=== PATIENT | female | born 1995 | race Asian ===

== ENCOUNTER 2016-07-19 17:39 | Emergency (ER) | payer BC ==
[~2016-07-19] VITALS: Ht 160 cm; Wt 49.8 kg
[2016-07-19 18:00] VITALS: TEMP 36.4; Ht 160 cm; Wt 49.8 kg
[2016-07-19] MEDS ORDERED: SODIUM CHLORIDE 0.9% 1000ML 1,000 ML IV STA (20:19)
[2016-07-19] MEDS ORDERED: DiphenhydrAMINE HCL 50 MG/ML VIAL IV STA (20:19)
[2016-07-19] MEDS ORDERED: PROCHLORPERAZINE 5 MG/ML 2 ML VIAL IV STA (20:19)
[2016-07-19] MEDS ORDERED: KETOROLAC TROMETHAMINE 30 MG/ML VIAL IV STA (20:19)
--- NOTE | 2016-07-19 20:22 | EMERGENCY ROOM VISIT NOTE ---
History Report prepared by Logan: Janet William Under the Supervision of: Dr. Owen Ritchie M.D. First contact with patient: 20:09 Chief Complaint: HEADACHE Stated Complaint: HEADACHE,NAUSEA History of Present Illness The patient is a 21 year old female who presents to the Emergency Room with complaints of a persistent headache that began this morning. She currently rates her discomfort as an 8/10 in severity. The patient states that her headache started suddenly this morning and states that she started experiencing nausea and vomiting. She denies any abdominal pain. The patient describes her headache as a throbbing pain and states that she has had one previous headache like this in the past. She denies any neck pain. The patient states that she is currently on antibiotics for a recent cough. She states that she has taken Advil for her discomfort, but states that she has vomited everything back up. The patient denies ever having any previous CT or MRI imaging of her head. She denies any chance of noting that her last normal menstrual cycle was three weeks ago. The patient denies any active medical problems. Source of History: patient Onset: this morning Position: head Symptom Intensity: 8/10 Quality: other (throbbing) Timing: other (persistent) Associated Symptoms: + cough, + nausea, + vomiting Review of Systems See HPI for pertinent positives & negatives. A total of 10 systems reviewed and were otherwise negative. Past Medical & Surgical Medical Problems: (1) No active medical problems Family History No pertinent family history stated. Social History Smoking Status: Never Smoker Marital Status: single Occupation Status: [employer] student Current/Historical Medications Scheduled Clarithromycin (Biaxin), 1 TAB PO BID Ondasetron Odt (Zofran Odt), 4 MG SL Q6H Scheduled PRN [Cheratussin Ac], 5 ML Q6 PRN for Cough Allergies Coded Allergies: No Known Allergies (Unverified , 07/19/16) Physical Exam Vital Signs Date Time Temp Pulse Resp B/P Pulse Ox O2 Delivery O2 Flow Rate FiO2 07/19/16 21:51 77 18 108/67 100 07/19/16 20:50 81 18 105/55 99 Room Air 07/19/16 18:00 36.4 73 20 114/76 100 Physical Exam GENERAL: Patient is a healthy-appearing well-nourished HEAD: Normocephalic atraumatic EYES: Ocular movements intact pupils equal and react to light OROPHARYNX mucous membranes are moist no exudates present no erythema or edema present NECK: No evidence of meningitis or encephalitis on exam. Supple no nuchal rigidity CHEST: Good equal expansion LUNGS: Clear and equal to auscultation CARDIAC: Normal S1 and S2 ABDOMEN: Soft nontender no guarding BACK: No CVA tenderness EXTREMITIES: No pain upon palpation normal muscle strength in all groups no clubbing cyanosis or edema NEURO: Patient is following commands is answering questions appropriately. Alert and oriented x3 Cranial Nerves 2-12 grossly intact Medical Decision & Procedures ER Provider Diagnostic Interpretation: CT results as stated below per my review and radiologist interpretation: HEAD CT NONCONTRAST CT DOSE: 537.48 mGy.cm HISTORY: Headache Pt c/o severe headache TECHNIQUE: Multiaxial CT images of the head were performed without the use of intravenous contrast. Comparison: None. Findings: The paranasal sinuses and mastoid air cells are clear. The calvarium and skull base are intact. The ventricles and sulci are within normal limits. There is no mass, hematoma, midline shift, or acute infarct. Impression: No acute intracranial abnormality. Electronically signed by: Alfredo Paniagua M.D. 07/19/2016 9:13 PM Dictated Date/Time: 07/19/2016 9:12 PM Laboratory Results 07/19/16 20:36 Red Blood Count 4.46, Mean Corpuscular Volume 87.9, Mean Corpuscular Hemoglobin 30.5, Mean Corpuscular Hemoglobin Concent 34.7, Mean Platelet Volume 9.6, Neutrophils (%) (Auto) 85.6, Lymphocytes (%) (Auto) 9.5, Monocytes (%) (Auto) 4.1, Eosinophils (%) (Auto) 0.2, Basophils (%) (Auto) 0.2, Neutrophils # (Auto) 7.93, Lymphocytes # (Auto) 0.88, Monocytes # (Auto) 0.38, Eosinophils # (Auto) 0.02, Basophils # (Auto) 0.02 07/19/16 20:36 Test 07/19/16 20:36 White Blood Count 9.27 K/uL (4.8-10.8) Red Blood Count 4.46 M/uL (4.2-5.4) Hemoglobin 13.6 g/dL (12.0-16.0) Hematocrit 39.2 % (37-47) Mean Corpuscular Volume 87.9 fL (80-100) Mean Corpuscular Hemoglobin 30.5 pg (25-34) Mean Corpuscular Hemoglobin Concent 34.7 g/dl (32-36) Platelet Count 258 K/uL (130-400) Mean Platelet Volume 9.6 fL (7.4-10.4) Neutrophils (%) (Auto) 85.6 % Lymphocytes (%) (Auto) 9.5 % Monocytes (%) (Auto) 4.1 % Eosinophils (%) (Auto) 0.2 % Basophils (%) (Auto) 0.2 % Neutrophils # (Auto) 7.93 K/uL (1.4-6.5) Lymphocytes # (Auto) 0.88 K/uL (1.2-3.4) Monocytes # (Auto) 0.38 K/uL (0.11-0.59) Eosinophils # (Auto) 0.02 K/uL (0-0.5) Basophils # (Auto) 0.02 K/uL (0-0.2) RDW Standard Deviation 40.5 fL (36.4-46.3) RDW Coefficient of Variation 12.6 % (11.5-14.5) Immature Granulocyte % (Auto) 0.4 % Immature Granulocyte # (Auto) 0.04 K/uL (0.00-0.02) Anion Gap 13.0 mmol/L (3-11) Est Creatinine Clear Calc Drug Dose 115.6 ml/min Estimated GFR () 150.0 Estimated GFR (Non- 129.4 BUN/Creatinine Ratio 19.5 (10-20) Calcium Level 9.0 mg/dl (8.5-10.1) Total Bilirubin 1.0 mg/dl (0.2-1) Direct Bilirubin 0.2 mg/dl (0-0.2) Aspartate Amino Transf (AST/SGOT) 15 U/L (15-37) Alanine Aminotransferase (ALT/SGPT) 17 U/L (12-78) Alkaline Phosphatase 36 U/L (45-117) Total Protein 8.0 gm/dl (6.4-8.2) Albumin 4.3 gm/dl (3.4-5.0) Lipase 95 U/L (73-393) Human Chorionic Gonadotropin, Qual NEG (NEG) Labs reviewed by ED physician. Medications Administered Medications (Trade) Dose Ordered Sig/Jun Route Start Time Stop Time Status Last Admin Dose Admin Ketorolac Tromethamine (Toradol Inj) 30 mg NOW STAT IV 07/19/16 20:19 07/19/16 20:21 DC 07/19/16 20:37 30 MG Prochlorperazine Edisylate (Compazine Inj) 5 mg NOW STAT IV 07/19/16 20:19 07/19/16 20:21 DC 07/19/16 20:37 5 MG Diphenhydramine HCl 50 mg 50 mg NOW STAT IV 07/19/16 20:19 07/19/16 20:21 DC 07/19/16 20:37 50 MG Sodium Chloride (Nss 1000ml) 1,000 ml @ 999 mls/hr Q1H1M STAT IV 07/19/16 20:19 07/19/16 21:19 DC 07/19/16 20:37 999 MLS/HR Ondansetron HCl (ZOFRAN ODT 4MG Home Pack) 1 homepack UD ONCE PO 07/19/16 21:30 07/19/16 21:31 DC 07/19/16 21:46 1 HOMEPACK ED Course 2014: Past medical records reviewed. The patient was evaluated in room C7. A complete history and physical examination was performed. 2019: Ordered Sodium Chloride 1000 ml @ 999 mls/hr IV, Benadryl Inj 50 mg IV, Compazine 5 mg IV, Toradol Inj 30 mg IV. 2116: I reevaluated the patient and she is feeling much better. I discussed all the exam findings with her and her family and I discussed the treatment plan. They verbalized complete understanding and agreement. The patient is going to try drinking Gatorade and then will be ready to go home. 2129: Ordered Ondansetron HCl 1 homepack PO. Medical Decision Differential diagnosis: Etiologies such as migraine headache, meningitis, sinusitis, CO exposure, ICH, SAH, infection, tumor, headache, sinus thrombosis, arterial dissection, as well as others were entertained. This is a 21-year-old female who presents emergency department complaining of headache. The patient has no evidence of meningitis or encephalitis on examination. An IV was established, the patient is given normal saline bolus, Toradol, Compazine, Benadryl. The patient's CAT scan does not show any evidence of acute process. Using shared medical decision-making, the patient refused a lumbar puncture however she stated she will return to emergency department for headache or neck pain worsens. At this point she is discharged home for follow-up with primary care physician. Patient and family were in agreement with the treatment plan. Impression Primary Impression: Headache Additional Impression: Vomiting Scribe Attestation The scribe's documentation has been prepared under my direction and personally reviewed by me in its entirety. I confirm that the note above accurately reflects all work, treatment, procedures, and medical decision making performed by me. Departure Information Dispostion Home / Self-Care Prescriptions Ondasetron Odt (ZOFRAN ODT) 4 Mg Tab 4 MG SL Q6H for Nausea, #6 TAB Prov: Owen Ritchie MD 07/19/16 Referrals No Doctor, Assigned (PCP) [facility] Forms HOME CARE DOCUMENTATION FORM, IMPORTANT VISIT INFORMATION, School Instructions, Work Instructions Patient Instructions Headache Pain, My [facility] Additional Instructions Increase fluids next 48 hours You have been examined and treated today on an emergency basis only. This is not a substitute for, or an effort to provide, complete comprehensive medical care. It is impossible to recognize and treat all injuries or illnesses in a single emergency department visit. It is therefore important that you follow up closely with [facility]. Call as soon as possible for an appointment. Thank you for your time and consideration. I look forward to speaking with you again soon. Please don't hesitate to call us if you have any questions. Problem Qualifiers Primary Impression: Headache Headache type: unspecified Headache chronicity pattern: unspecified pattern Intractability: not intractable Qualified Codes: R51 - Headache Additional Impression: Vomiting Vomiting type: unspecified Vomiting Intractability: unspecified Nausea presence: unspecified Qualified Codes: R11.10 - Vomiting, unspecified
[2016-07-19 20:51] LABS: BASO % 0.2 %; BASO ABS # 0.02 K/uL (0-0.2); COMPLETE YES; EOS % 0.2 %; HEMATOCRIT 39.2 % (37-47); IG% 0.4 %; LYMPH % 9.5 %; LYMPH ABS # 0.88 K/uL (1.2-3.4); MEAN CELL VOLUME 87.9 fL (80-100); MEAN CORPUSCULAR HEMOGLOBIN 30.5 pg (25-34); MEAN CORPUSCULAR HGB CONC 34.7 g/dl (32-36); MEAN PLATELET VOLUME 9.6 fL (7.4-10.4); MONO % 4.1 %; NEUT % 85.6 %; PLATELET COUNT 258 K/uL (130-400); RED BLOOD COUNT 4.46 M/uL (4.2-5.4); WHITE BLOOD COUNT 9.27 K/uL (4.8-10.8)
[2016-07-19 21:10] LABS: BUN/CREATININE RATIO 19.5 (10-20); CREATININE 0.6 mg/dl (0.60-1.20); POTASSIUM 3.7 mmol/L (3.5-5.1)
--- NOTE | 2016-07-19 21:14 | DIAGNOSTIC IMAGING REPORT ---
HEAD CT NONCONTRAST CT DOSE: 537.48 mGy.cm HISTORY: Headache Pt c/o severe headache TECHNIQUE: Multiaxial CT images of the head were performed without the use of intravenous contrast. Comparison: None. Findings: The paranasal sinuses and mastoid air cells are clear. The calvarium and skull base are intact. The ventricles and sulci are within normal limits. There is no mass, hematoma, midline shift, or acute infarct. Impression: No acute intracranial abnormality. Electronically signed by: Alfredo Paniagua M.D. 07/19/2016 9:13 PM Dictated Date/Time: 07/19/2016 9:12 PM
[2016-07-19] MEDS ORDERED: ONDA4TAB10 SL (21:20)
[2016-07-19] MEDS ORDERED: ONDANSETRON HOME PACK 4MG OD TAB PO ONE (21:30)
[2016-07-19 21:34] LABS: PREG INTERNAL NEGATIVE QC NEG CLEAR BACKGROUND; PREG INTERNAL POSITIVE QC POS CONTROL LINE
[2016-07-19 21:51] VITALS: BP 108/67; PULSE 77; O2SAT 100
[2016-07-19] MEDS ORDERED: CHERATUSSIN AC (21:54)
[2016-07-19] MEDS ORDERED: CLAR500T3 PO (21:54)
== END 2016-07-19 21:52 | disposition home or self-care (01) ==
LOC: C.EDB 17:40 → C.EDC 21:52
DX: R51 Headache (principal); R11.10 Vomiting, unspecified